=== PATIENT | male | born 1970 | race Two or more races ===

== ENCOUNTER 2016-07-24 17:09 | Emergency (ER) | payer SELFPAY ==
[~2016-07-24] VITALS: Ht 167.6 cm; Wt 93.7 kg
[2016-07-24 18:37] VITALS: BP 121/72
== END 2016-07-24 18:46 | disposition home or self-care (01) ==
LOC: ED 18:45
DX: M25.462 Effusion, left knee (principal)
CPT/HCPCS: 99284